=== PATIENT | male | born 1975 | race American Indian/Alaskan Native ===

== ENCOUNTER 2019-04-25 04:44 | Emergency (ER) | payer MEDICARE ==
[2019-04-25 05:56] LABS: Hematocrit 31.1 % (35.5-45.6); Hemoglobin 10.5 gm/dl (11.8-15.2); Mean Corpuscular HGB Conc 34 % (32-34); Mean Corpuscular Volume 87 fl (84-94); Platelet Count 212 K/mm3 (140-440); Red Blood Count 3.58 M/mm3 (3.65-5.03); Red Cell Distribution Width 14.6 % (13.2-15.2)
[2019-04-25 06:15] LABS: BUN/Creatinine Ratio 13; Blood Urea Nitrogen 8 mg/dL (9-20); Calcium 8.6 mg/dL (8.4-10.2); Hemolysis Index 0
--- NOTE | 2019-04-25 07:17 | Emergency Department Report ---
HPI - General Chief Complaint: Dizziness Time Seen by Provider: 04/25/19 06:44 - HPI HPI: 43-year-old -[place] male presents to the emergency department with complaint of needing to be restarted on his Risperdal for his schizophrenia. The patient also says he needs some help figuring out how to get back to his halfway as he says he does not know the name of it or the address. The patient was found outside of a gas station and EMS was called. He says that he has some nonspecific dizziness off and on. He denies any headache, vision minor e, slurred speech, numbness or any other neurological deficits. He denies any current hallucinations or any suicidal or homicidal ideations. ED Past Medical Hx - Past Medical History Previous Medical History?: Yes Hx Psychiatric Treatment: Yes (schizo) - Surgical History Past Surgical History?: No - Social History Smoking Status: Never Smoker Substance Use Type: None ED Review of Systems ROS: Stated complaint: DIZZY Other details as noted in HPI Comment: All other systems reviewed and negative Constitutional: denies: chills, fever Eyes: denies: eye pain, vision change ENT: denies: ear pain, throat pain Respiratory: denies: cough, shortness of breath Cardiovascular: denies: chest pain, palpitations Gastrointestinal: denies: abdominal pain, vomiting Genitourinary: denies: dysuria, discharge Musculoskeletal: denies: back pain, arthralgia Neurological: other (Dizziness). denies: headache Psychiatric: denies: auditory hallucinations, visual hallucinations, homicidal thoughts, suicidal thoughts Physical Exam - Physical Exam Vital Signs: Vital Signs 04/25/19 04/25/19 04:50 07:10 Temperature 98.3 F Pulse Rate 109 H 110 H Respiratory 18 18 Rate Blood Pressure 137/91 Blood Pressure 141/96 [Left] O2 Sat by Pulse 99 100 Oximetry Physical Exam: GENERAL: The patient is well-developed well-nourished. HENT: Normocephalic. Atraumatic. Patient has moist mucous membranes. EYES: Extraocular motions are intact. NECK: Supple. Trachea is midline. CHEST/LUNGS: Clear to auscultation. There is no respiratory distress noted. HEART/CARDIOVASCULAR: Regular. There is no tachycardia. There is no murmur. ABDOMEN: Abdomen is soft, nontender. Patient has normal bowel sounds. There is no abdominal distention. SKIN: Skin is warm and dry. NEURO: The patient is awake, alert, and cooperative. The patient has no focal neurologic deficits. Normal speech. Cranial nerves II through XII grossly intact. MUSCULOSKELETAL: There is no tenderness or deformity. There is no limitation range of motion. There is no evidence of acute injury. ED Course Vital Signs 04/25/19 04/25/19 04:50 07:10 Temperature 98.3 F Pulse Rate 109 H 110 H Respiratory 18 18 Rate Blood Pressure 137/91 Blood Pressure 141/96 [Left] O2 Sat by Pulse 99 100 Oximetry ED Medical Decision Making - Lab Data Result diagrams: 04/25/19 05:15 04/25/19 05:15 - EKG Data -: EKG Interpreted by Me EKG shows normal: sinus rhythm, axis, intervals, QRS complexes (Q waves to the septal leads), ST-T waves Rate: normal - EKG Data When compared to previous EKG there are: previous EKG unavailable Interpretation: other (Sinus rhythm, normal axis, normal intervals, Q waves to the septal leads) - Medical Decision Making This patient presents to the emergency department with the complaints of some nonspecific lightheadedness, needing to be restarted on his Risperdal, and assistance getting back to his halfway facility. On examination the patient does not appear to have any focal, motor or sensory deficits and his cranial nerves are intact. The patient was AAO x3 for me but does not know the name or address of his halfway facility. His vital signs have been stable throughout his ED course. Labs have been unremarkable. He was seen by the psychiatric team who did not feel that the patient required involuntary inpatient psychiatric admission and could be restarted on his medications in the outpatient setting. The case management team was notified to assist with discharge planning. Critical Care Time: No Critical care attestation.: If time is entered above; I have spent that time in minutes in the direct care of this critically ill patient, excluding procedure time. ED Disposition Clinical Impression: History of schizophrenia, Noncompliance with medication regimen Disposition: DC-01 TO HOME OR SELFCARE Is pt being admited?: No Condition: Stable Additional Instructions: Please follow-up with the [facility] or any of the referrals given to you by the psychiatric team. Please follow-up with a primary care physician in the next few days. Return to the emergency department with any worsening of your symptoms or any acute distress. Referrals: [facility] [Outside] - 2-3 Days [facility] [Outside] - 2-3 Days PRIMARY CARE, [Primary Care Provider] - 2-3 Days Time of Disposition: 14:53
[2019-04-25 08:14] LABS: Band Neutrophils # (Manual) 0.9 K/mm3; Basophils % (Manual) 0 % (0.0-1.8); RBC Morphology Normal; Total Cells Counted 100
[2019-04-25 08:15] LABS: Platelet Estimate Consistent w Auto
[2019-04-25 08:16] LABS: Bacteria,Urine 1+ /HPF (Negative); Bilirubin,Urine NEG (Negative); Blood,Urine NEG (Negative); Color,Urine Straw (Yellow); Protein,Urine <15 mg/dL mg/dL (Negative); Urobilinogen,Urine < 2.0 mg/dL (<2.0)
[2019-04-25 08:19] LABS: WBC,Urine < 1.0 /HPF (0.0-6.0)
[2019-04-25 08:21] LABS: Amphetamine Screen,Urine PRESUMPTIVE NEGATIVE; Benzodiazepines Screen,Urine PRESUMPTIVE NEGATIVE; Cannabinoid Screen,Urine PRESUMPTIVE NEGATIVE; Cocaine Screen,Urine PRESUMPTIVE NEGATIVE; Methadone Screen,Urine PRESUMPTIVE NEGATIVE; Opiate Screen,Urine PRESUMPTIVE NEGATIVE
--- NOTE | 2019-04-25 12:50 | Consultation ---
History of Present Illness - Reason for Consult Consult date: 04/25/19 Reason for consult: psychiatric assessment - History of Present Psychiatric Illness mr sandoval is a 43-year-old -[place] male, the patient is in bed alert oriented x1, patient re-oriented to time, the patient appeared disheveled, he maintained eye contact. On entering the room the patient stated, "what time am i going home". When asked if he knew where he was patient said "I do not know where I am possible [facility]". When asked what brought him here the patient said the ambulance. The patient reports that he lives in a senior care but he does not know the name of the senior care or where it is located. When asked about suicidal ideation the patient reported, "I am not suicidal". The patient denies homicidal ideations. The patient denies visual or auditory hallucinations. The patient stated, "I have a mental health diagnosis and i need my medication". The patient denies that he is depressed and stated, "I just need my medication". This news writer went back to talk to the patient about his medication, the patient was found outside the emergency room on the curb smo roberto a cigarette, he reports that he does not know the name of the medication and stated that his mother would know. The patient's mother was called but no one answered. The patient was reassessed, he is alert oriented x2, reoriented to time. PAST PSYCHIATRIC HISTORY: Diagnoses: Schizophrenia Suicide attempts or Self-harm behavior: Denies Prior psychiatric hospitalizations: Yes Substance Abuse history: Denies Previous psychiatric medications tried: unable to remember Outpatient treatment: Denies PAST MEDICAL HISTORY: Family Psychiatric History None reported or documented SOCIAL HISTORY Marital Status: Single Living Arrangements: longterm Employment Status: Unemployed Access to guns/weapons: Denies Education: 12th History of Abuse: Denies Legal History: Denies ROS: Constitutional: Negative for weight loss ENT: Negative for stridor Respiratory: Negative for cough or hemoptysis All other systems reviewed and are negative MENTAL STATUS General Appearance and Behavior: age appropriate, limited eye contact, Cooperation: Cooperative Psychomotor Behavior: within normal limits Mood: OK Affect and affective range: Congruent with stated mood Thought Process: Goal-directed Thought Content: Within reality Speech: Normal volume and Regular rate and rhythm Intellectual Functioning limited Suicidal Ideation: Denies SI Homicidal Ideation: Denies HI Impulse Control: intact Insight and Judgment: limited Attention: Normal Orientation: alert and oriented x2-3 RECOMMENDATIONS MEDICATIONS: Risks, benefits and alternatives of medications discussed with the patient, questions answered and consent obtained from patient. PSYCHOTHERAPY: Supportive psychotherapy provided MEDICAL: Per primary team PARISH NURSE: DISPOSITION: Per primary team; no indication for acute inpatient psychiatric hospitalization at this time, the patient can be followed on outpatient basis. No obsessive, intrusive and persistent thoughts or compulsive ritualistic acts are reported no hallucinations delusions or other symptoms of psychotic process are reported the patient is able to be discharged home. LEGAL STATUS: voluntary FOLLOW-UP: sign off Medications and Allergies Allergies Allergy/AdvReac Type Severity Reaction Status Date / Time No Known Allergies Allergy Verified 04/25/19 04:55 Mental Status Exam - Vital signs Last Vital Signs Temp 98.3 F 04/25/19 04:50 Pulse 110 H 04/25/19 07:10 Resp 18 04/25/19 07:10 BP 141/96 04/25/19 07:10 Pulse Ox 100 04/25/19 07:10 Results Result Diagrams: 04/25/19 05:15 04/25/19 05:15 Abnormal lab results 04/25/19 04/25/19 04/25/19 Range/Units 05:15 05:15 05:15 WBC (4.5-11.0) K/mm3 RBC (3.65-5.03) M/mm3 Hgb (11.8-15.2) gm/dl Hct (35.5-45.6) % Lymphocytes % (Manual) (13.4-35.0) % Lymphocytes # (Manual) (1.2-5.4) K/mm3 Sodium 136 L (137-145) mmol/L Chloride 95.2 L (98-107) mmol/L BUN 8 L (9-20) mg/dL Creatinine 0.6 L (0.8-1.5) mg/dL Urine pH (5.0-7.0) Salicylates < 0.3 L (2.8-20.0) mg/dL Acetaminophen < 5.0 L (10.0-30.0) ug/mL 04/25/19 04/25/19 Range/Units 05:15 07:55 WBC 3.3 L (4.5-11.0) K/mm3 RBC 3.58 L (3.65-5.03) M/mm3 Hgb 10.5 L (11.8-15.2) gm/dl Hct 31.1 L (35.5-45.6) % Lymphocytes % (Manual) 1.0 L (13.4-35.0) % Lymphocytes # (Manual) 0.0 L (1.2-5.4) K/mm3 Sodium (137-145) mmol/L Chloride (98-107) mmol/L BUN (9-20) mg/dL Creatinine (0.8-1.5) mg/dL Urine pH 8.0 H (5.0-7.0) Salicylates (2.8-20.0) mg/dL Acetaminophen (10.0-30.0) ug/mL All other labs normal.
[2019-04-25 16:00] VITALS: BP 149/93
[2019-04-25] MEDS ORDERED: risperiDONE 0.25 MG TAB PO SCH (22:00)
== END 2019-04-25 18:13 | disposition home or self-care (01) ==
LOC: ED 04:44
DX: F20.89 Other schizophrenia (principal)
CPT/HCPCS: 36415; 80048; 80307; 80320; 81001; 82962; 84443; 85007; 85025; 93005; 93010; G0480